=== PATIENT | male | born 1985 | race African-American/Black ===

== ENCOUNTER 2020-09-12 23:24 | Emergency (ER) | payer SELFPAY ==
[~2020-09-12] VITALS: Ht 175.3 cm; Wt 73.0 kg
[2020-09-13] MEDS ORDERED: LIDOCAINE HCL/PF 1% 10 MG/ML 5ML VIAL IJ ONE (00:30)
[2020-09-13] MEDS ORDERED: BACITRACIN ZINC OINT UDPKT TOP ONE (00:30)
[2020-09-13] MEDS ORDERED: TETANUS, DIPHTHERIA, PERTUSSIS VAC/PF 0.5ML (>7YR OLD) IM ONE (00:30)
[2020-09-13 01:58] VITALS: BP 134/82
== END 2020-09-13 02:10 | disposition home or self-care (01) ==
LOC: ER 23:24
DX: S41.111A Laceration without foreign body of right upper arm, initial encounter (principal); Y09 Assault by unspecified means; Y93.89 Activity, other specified; Y92.89 Other specified places as the place of occurrence of the external cause; Y99.8 Other external cause status
CPT/HCPCS: 12002; 73130; 90471; 90715; 99283; J3490

== ENCOUNTER 2020-10-21 08:24 | Emergency (ER) | payer MEDICAID ==
[~2020-10-21] VITALS: Ht 185.4 cm; Wt 84.0 kg
[2020-10-21 08:56] VITALS: BP 110/78
== END 2020-10-21 08:56 | disposition home or self-care (01) ==
LOC: ER 08:27
DX: Z48.02 Encounter for removal of sutures (principal)
CPT/HCPCS: 99281